=== PATIENT | male | born 1970 | race Caucasian/White ===

== ENCOUNTER 2016-10-28 13:24 | Emergency (ER) | payer OTHER ==
[~2016-10-28] VITALS: Ht 190.5 cm; Wt 88.0 kg
[~2016-10-28 13:24] MED LIST: ARTANE2 MG PO; BENZTROPINE PO; CHLORPROMAZINE100 M1 PO; DOCUSATE SODIU PO; DOCUSATE100 MG PO; LAMICTAL200 MG PO; NORVASC10 MG PO; NORVASC5 MG PO; OLOPATADINE HCL NS; TRAZODONE50 M2 PO; VITA-MIN1 CAP PO; ZOLPIDEM10 MG PO
[2016-10-28 13:51] VITALS: BP 128/89
[2016-10-28 14:39] VITALS: BP 128/89
--- NOTE | 2016-10-28 14:40 | NUR ---
PATIENT IS A 46 YO MALE BIB SELF FOR RIGHT INDEX FINGER PAIN. AWAKE AND ALERT NO ACUTE DISTRESS.
== END 2016-10-28 14:41 | disposition home or self-care (01) ==
LOC: MED 13:24
DX: M79.644 Pain in right finger(s) (principal); G89.29 Other chronic pain; I10 Essential (primary) hypertension; Z88.2 Allergy status to sulfonamides; Z88.8 Allergy status to other drugs, medicaments and biological substances; Z79.899 Other long term (current) drug therapy

== ENCOUNTER 2017-05-21 09:11 | Emergency (ER) | payer OTHER ==
[~2017-05-21] VITALS: Ht 190.5 cm; Wt 108.9 kg
[~2017-05-21 09:11] MED LIST changes: +AMLO5TAB PO; -ARTANE2 MG PO; +BENZ1TAB90 PO; -BENZTROPINE PO; -CHLORPROMAZINE100 M1 PO; +DOCU-7 PO; -DOCUSATE SODIU PO; -DOCUSATE100 MG PO; +LAM200 PO; -LAMICTAL200 MG PO; +MULT-1749 PO; -NORVASC10 MG PO; -NORVASC5 MG PO; -OLOPATADINE HCL NS; +TRAZ-286 PO; -TRAZODONE50 M2 PO; +TRIH2TAB21 PO; -VITA-MIN1 CAP PO; +ZOLP10TA6 PO; -ZOLPIDEM10 MG PO; +[UNRECOGNIZED DRUG - CODE] PO
--- NOTE | 2017-05-21 09:16 | NUR ---
Patient ambulated to bed 03.
[2017-05-21 09:20] VITALS: BP 148/97
--- NOTE | 2017-05-21 09:21 | NUR ---
46/M BIB C/O NECK PAIN X 4 MONTHS. PT STATES NECK PAIN RADIATING TO LEFT SHOULDER X 2 DAYS AGO . DENIES N/V/D; SKIN IS PINK/WARM/DRY; AAOX4 WITH EVEN AND STEADY GAIT; LUNGS CLEAR BL; PT DENIES ANY FEVER, CP, SOB, OR COUGH AT THIS TIME; PATIENT STATES PAIN OF 0/10 AT THIS TIME; PATIENT POSITIONED FOR COMFORT; HOB ELEVATED; BEDRAILS UP X2; BED DOWN. ER MADE AWARE OF PT STATUS. Addendum: 05/21/17 at 0929 by [email or web address] DENIES TRAUMA OR ACCIDENT. PT STATED CAME HERE 1 MO AGO & GOT MED BUT DIDN'T HELP.
--- NOTE | 2017-05-21 09:29 | NUR ---
Patient being evaluated by DR MELGAR at bedside.
[2017-05-21 09:41] VITALS: BP 150/96
--- NOTE | 2017-05-21 09:41 | NUR ---
Patient discharged with BP 150/96; DENIES HEADACHE AT THIS TIME; MD MADE AWARE. Written and verbal after care instructions given and explained. Patient alert, oriented and verbalized understanding of instructions. Ambulatory with steady gait. All questions addressed prior to discharge. ID band removed. Patient advised to follow up with PMD. Rx of MOTRIN & MEDROL DOSEPAK given. Patient educated on indication of medication including possible reaction and side effects. Opportunity to ask questions provided and answered.
== END 2017-05-21 09:41 | disposition home or self-care (01) ==
LOC: MED 09:11
DX: S46.812A Strain of other muscles, fascia and tendons at shoulder and upper arm level, left arm, initial encounter (principal); I10 Essential (primary) hypertension; Z88.8 Allergy status to other drugs, medicaments and biological substances; Z88.1 Allergy status to other antibiotic agents; Z91.013 Allergy to seafood; X58.XXXA Exposure to other specified factors, initial encounter; Y93.89 Activity, other specified; Y92.89 Other specified places as the place of occurrence of the external cause; Y99.8 Other external cause status
CPT/HCPCS: 99283

== ENCOUNTER 2017-10-04 07:32 | Emergency (ER) | payer OTHER ==
[~2017-10-04] VITALS: Ht 190.5 cm; Wt 137.0 kg
[2017-10-04 07:39] VITALS: BP 150/92
--- NOTE | 2017-10-04 07:45 | NUR ---
PT AMBULATED TO ER BED 11
--- NOTE | 2017-10-04 07:47 | NUR ---
DR. NGUYEN AT BEDSIDE
--- NOTE | 2017-10-04 07:52 | NUR ---
PATIENT PRESENTS TO ED WITH RIGHT ANKLE PAIN AND LEFT BUTTOCK PAIN. PT STATES PAIN IN ANKLE JUST CAME ON AT NIGHT WHILE SLEEPING. BUTTOCK PAIN APPEARS TO BE AT A SORE ON LEFT GLUTE. DENIES N/V/D; SKIN IS PINK/WARM/DRY; AAOX4 WITH EVEN AND STEADY GAIT; LUNGS CLEAR BL; HR EVEN AND REGULAR; PT DENIES ANY FEVER, CP, SOB, OR COUGH AT THIS TIME; PATIENT STATES PAIN OF 7/10 AT THIS TIME; VSS; PATIENT POSITIONED FOR COMFORT; HOB ELEVATED; BEDRAILS UP X1; BED DOWN. ER MD MADE AWARE OF PT STATUS.
--- NOTE | 2017-10-04 07:57 | NUR ---
LAB AT BEDSIDE
--- NOTE | 2017-10-04 08:00 | NUR ---
XRAY AT BEDSIDE
[2017-10-04 08:09] LABS: BASOPHILS % (AUTO) 0.4 % (0.0-2.0); EOSINOPHILS # (AUTO) 0.2 K/uL (0-0.4); EOSINOPHILS % (AUTO) 2.8 % (0.0-4.0); HEMATOCRIT 44.8 % (36-52); LYMPHOCYTES # (AUTO) 1.3 K/uL (2.0-11.5); LYMPHOCYTES % (AUTO) 17.9 % (20.5-51.1); MEAN CORPUSCULAR HEMOGLOBIN 29 pg (27-31); MEAN CORPUSCULAR HGB CONC 33 g/dL (33-37); MONOCYTES # (AUTO) 0.4 K/uL (0.8-1.0); MONOCYTES % (AUTO) 4.9 % (1.7-9.3); NEUTROPHILS # (AUTO) 5.3 K/uL (1.8-7.7); PLATELET COUNT (AUTO) 235 K/uL (140-450); RED CELL DISTRIBUTION WIDTH 13.7 % (11.6-13.7); WHITE BLOOD COUNT (AUTO) 7.2 K/uL (4.8-10.8)
[2017-10-04 08:24] LABS: ANION GAP 10.4 (8-16); CARBON DIOXIDE 30.8 mmol/L (21-32); POTASSIUM 4.2 mmol/L (3.5-5.1)
[2017-10-04 08:29] LABS: ALBUMIN 3.6 g/dL (3.4-5.0); TOTAL BILIRUBIN 0.4 mg/dL (0.0-1.0); URIC ACID 5.6 mg/dL (2.6-7.2)
[2017-10-04] MEDS ORDERED: BACITRACIN OINT 500 UNITS/GM PKT TP ONE (08:44)
[2017-10-04 08:46] VITALS: BP 148/90
[2017-10-04] MEDS ORDERED: LIDOCAINE MPF 1% - **ER/OR** 5 ML ONE (08:47)
== END 2017-10-04 08:44 | disposition home or self-care (01) ==
LOC: MED 07:32
DX: M25.571 Pain in right ankle and joints of right foot (principal); I10 Essential (primary) hypertension; Z88.2 Allergy status to sulfonamides; Z88.8 Allergy status to other drugs, medicaments and biological substances
CPT/HCPCS: 36415; 73610; 80053; 84550; 85025; 99285; J2001

== ENCOUNTER 2018-03-20 17:46 | Emergency (ER) | payer OTHER ==
[~2018-03-20] VITALS: Ht 190.5 cm; Wt 133.1 kg
[~2018-03-20 17:46] MED LIST changes: -TRAZ-286 PO; +TRAZ-344 PO
[2018-03-20 18:04] VITALS: BP 150/93
[2018-03-20 18:33] VITALS: BP 150/93
[2018-03-20] MEDS ORDERED: KETOROLAC 30 MG/ML VIAL IM ONE (19:30)
== END 2018-03-20 19:59 | disposition home or self-care (01) ==
LOC: MED 17:46
DX: S20.212A Contusion of left front wall of thorax, initial encounter (principal); F32.9 Major depressive disorder, single episode, unspecified; I10 Essential (primary) hypertension; Z88.8 Allergy status to other drugs, medicaments and biological substances; Z79.899 Other long term (current) drug therapy; Z90.89 Acquired absence of other organs; Z91.013 Allergy to seafood; W01.10XA Fall on same level from slipping, tripping and stumbling with subsequent striking against unspecified object, initial encounter; Y93.31 Activity, mountain climbing, rock climbing and wall climbing; Y92.89 Other specified places as the place of occurrence of the external cause; Y99.8 Other external cause status
CPT/HCPCS: 71101; 96372; 99284; J1885

== ENCOUNTER 2018-07-12 12:50 | Emergency (ER) | payer OTHER ==
[~2018-07-12] VITALS: Ht 190.5 cm; Wt 127.0 kg
[2018-07-12 12:55] VITALS: BP 134/86
--- NOTE | 2018-07-12 13:18 | NUR ---
PT AMBULATED TO ER BED 01
--- NOTE | 2018-07-12 13:24 | NUR ---
BIB SELF WITH C/O RIGHT UPPER ARM : SMALL BRUISE & PAIN RADIATING TO RIGHT SHOULDER X LAST NIGHT. CAP REFILL <3 SEC. PT STATES HE CALLED HIS PCP TO CHECK FOR DVT ON HIS RIGHT ARM, NO TRAUMA OR INJURY, PMH: DENIES . RX: NONE.DENIES N/V/D; SKIN IS PINK/WARM/DRY; AAOX4 WITH EVEN AND STEADY GAIT. PT DENIES ANY FEVER, CP, SOB, OR COUGH AT THIS TIME; PATIENT STATES PAIN OF 8/10 AT THIS TIME. PATIENT POSITIONED FOR COMFORT; HOB ELEVATED; BEDRAILS UP X2; BED DOWN. ER MD MADE AWARE OF PT STATUS.
--- NOTE | 2018-07-12 13:41 | NUR ---
US AT BEDSIDE
[2018-07-12] MEDS ORDERED: KETOROLAC 30 MG/ML VIAL IM ONE (14:55)
[2018-07-12 15:02] VITALS: BP 126/72
--- NOTE | 2018-07-12 15:02 | NUR ---
Patient discharged with v/s stable. Written and verbal after care instructions given and explained. Patient alert, oriented and verbalized understanding of instructions. Ambulatory with steady gait. All questions addressed prior to discharge. ID band removed. Patient advised to follow up with PMD. Rx of NAPROXYN given. Patient educated on indication of medication including possible reaction and side effects. Opportunity to ask questions provided and answered.
== END 2018-07-12 15:02 | disposition home or self-care (01) ==
LOC: MED 12:50
DX: M79.601 Pain in right arm (principal); I10 Essential (primary) hypertension; Z88.1 Allergy status to other antibiotic agents; Z79.899 Other long term (current) drug therapy; Z88.8 Allergy status to other drugs, medicaments and biological substances; Z88.2 Allergy status to sulfonamides
CPT/HCPCS: 93971; 96372; 99284; J1885; Q0092

== ENCOUNTER 2019-11-03 21:13 | Emergency (ER) | payer OTHER ==
[~2019-11-03] VITALS: Ht 190.5 cm; Wt 108.9 kg
[2019-11-03 21:15] VITALS: BP 137/77
--- NOTE | 2019-11-03 21:16 | NUR ---
PT ROSA BLS. TAKEN TO BED 6
--- NOTE | 2019-11-03 21:18 | NUR ---
49 YEAR OLD MALE COMPLAINS OF RIB PAIN X TUESDAY AFTER FALLING. PT DENIES SHORTNESS OF BREATHE, OR ANY OTHER COMPLAINTS. SPO2 97%, RR 18. PT AOX4, BREATHING EVEN AND UNLABORED, SKIN WARM AND DRY. BED IN LOWEST POSITION, LOCKED, BED RAIL UPX1. PMH - DM2, HERNIAL SURGERY (1991) ALLERGIES - SULFAS
--- NOTE | 2019-11-03 21:30 | NUR ---
Dr. De La Paz examining patient.
--- NOTE | 2019-11-03 21:41 | NUR ---
PT TAKEN TO RADIOLOGY
--- NOTE | 2019-11-03 21:41 | NUR ---
X-Ray at bedside.
--- NOTE | 2019-11-03 21:55 | NUR ---
PT BACK FROM X RAY.
[2019-11-03 22:11] VITALS: BP 137/77
--- NOTE | 2019-11-03 22:11 | NUR ---
Patient discharged with v/s stable. Written and verbal after care instructions about rib contusion given and explained. Patient alert, oriented and verbalized understanding of instructions. Ambulatory with steady gait. All questions addressed prior to discharge. ID band removed. Patient advised to follow up with PMD. Rx of naprosyn given. Patient educated on indication of medication including possible reaction and side effects. Opportunity to ask questions provided and answered.
== END 2019-11-03 22:11 | disposition home or self-care (01) ==
LOC: MED 21:13
DX: S20.211A Contusion of right front wall of thorax, initial encounter (principal); I10 Essential (primary) hypertension; Z79.899 Other long term (current) drug therapy; W05.0XXA Fall from non-moving wheelchair, initial encounter; Y93.89 Activity, other specified; Y92.89 Other specified places as the place of occurrence of the external cause; Y99.8 Other external cause status
CPT/HCPCS: 71101; 99283

== ENCOUNTER 2023-01-05 09:26 | Day surgery (SDC) | payer OTHER ==
[~2023-01-05] VITALS: Ht 188 cm; Wt 127.9 kg
[~2023-01-05 09:26] MED LIST changes: +[UNRECOGNIZED DRUG - CODE] PO; -[UNRECOGNIZED DRUG - CODE] PO
[2023-01-05] MEDS ORDERED: diphenhydrAMINE 50 MG/ML VIAL ONE (11:03)
[2023-01-05] MEDS ORDERED: fentaNYL citrate 0.05 MG/ML VIAL ONE (11:04)
[2023-01-05] MEDS ORDERED: MIDAZOLAM 2 MG/2 ML VIAL ONE (11:04)
[2023-01-05] MEDS ORDERED: LIDOCAINE 2% 100 MG/5 ML UJET TP ONE (11:05)
[2023-01-05] MEDS ORDERED: MIDAZOLAM 2 MG/2 ML VIAL IVP ONE (14:55)
[2023-01-05] MEDS ORDERED: fentaNYL citrate 0.05 MG/ML VIAL IVP ONE (14:55)
[2023-01-05] MEDS ORDERED: diphenhydrAMINE 50 MG/ML VIAL IVP ONE (14:55)
== END 2023-01-05 12:38 | disposition home or self-care (01) ==
LOC: MDS 09:26 → MMU 09:36 → MDS 12:38
PROVIDERS: ATTEND Internal Medicine Gastroenterology
DX: Z12.11 Encounter for screening for malignant neoplasm of colon (principal); K63.5 Polyp of colon; I10 Essential (primary) hypertension; E11.9 Type 2 diabetes mellitus without complications; E78.5 Hyperlipidemia, unspecified; E66.9 Obesity, unspecified; F32.A Depression, unspecified; M17.11 Unilateral primary osteoarthritis, right knee; Z98.890 Other specified postprocedural states; Z79.899 Other long term (current) drug therapy
CPT/HCPCS: 45385; 82948; 88305; J1200; J2250; J3010